=== PATIENT | female | born 1955 | race Asian ===

== ENCOUNTER 2018-10-11 05:22 | Observation (INO) | payer OTHER ==
[2018-10-11] MEDS ORDERED: LR 1,000 ML IV ONE (05:53)
[2018-10-11] MEDS ORDERED: LIDOCAINE 1% 2 ML INJ ID PRN (05:53)
[2018-10-11] MEDS ORDERED: PHENAZOPYRIDINE HCL 200 MG TAB PO ONE (06:00)
[2018-10-11] MEDS ORDERED: ceFAZolin 2 GM/DEXTROSE 100 ML IV ONE (06:00)
[2018-10-11] MEDS ORDERED: MIDAZOLAM 2 MG/2 ML VIAL IVP ONE (07:05)
--- NOTE | 2018-10-11 07:05 | PDANEPAE ---
ANE History of Present Illness incontinence and vaginal prolapse, here for sacrocolpopexy and hysterectomy ANE Past Medical History - Cardiovascular History Hx Hypertension: No Hx Arrhythmias: No Hx Chest Pain: No Hx Coronary Artery / Peripheral Vascular Disease: No Hx CHF / Valvular Disease: No Hx Palpitations: No - Pulmonary History Hx COPD: No Hx Asthma/Reactive Airway Disease: No Hx Recent Upper Respiratory Infection: No Hx Oxygen in Use at Home: No Hx Sleep Apnea: No Sleep Apnea Screening Result - Last Documented: Negative - Neurologic History Hx Cerebrovascular Accident: No Hx Seizures: No Hx Dementia: No - Endocrine History Hx Diabetes: No - Renal History Hx Renal Disorders: No - Liver History Hx Hepatic Disorders: No - Neurological & Psychiatric Hx Hx Neurological and Psychiatric Disorders: Yes Neurological / Psychiatric History Comment: right hand middle finger numb in morning - Cancer History Hx Cancer: No - Congenital Disorder History Hx Congenital Disorders: No - GI History Hx Gastrointestinal Disorders: No - Other Health History Other Health History: bruises easily. wisdom teeth removed - Chronic Pain History Chronic Pain: No - Surgical History Prior Surgeries: none ANE Review of Systems Review of Systems: - Exercise capacity METS (RN): 4 METS ANE Patient History - Allergies Allergies/Adverse Reactions: No Known Allergies Allergy (Verified 09/29/18 10:41) - Home Medications Home Medications: Acetaminophen [Tylenol 325mg (*)] 325 mg PO DAILY PRN 09/29/18 [Last Taken 10/04] Ascorbic Acid [Vitamin C 500 mg (*)] 500 mg PO DAILY 09/29/18 [Last Taken ] Atorvastatin Calcium [Lipitor 10 mg (*)] 10 mg PO DAILY 09/29/18 [Last Taken 19:00] Glucosamine Sulfate [Glucosamine Sulfate 500 MG (*)] 500 mg PO DAILY 09/29/18 [ Last Taken 10/04/18] Multivitamins [Multivitamin (*)] 1 each PO DAILY 09/29/18 [Last Taken 10/04/18] - NPO status NPO Since - Liquids (Date): 10/10/18 NPO Since - Liquids (Time): 20:00 NPO Since - Solids (Date): 10/10/18 NPO Since - Solids (Time): 20:00 - Smoking Hx Smoking Status: Never smoked - Family Anes Hx Family Hx Anesthesia Complications: none ANE Labs/Vital Signs - Vital Signs Blood Pressure: 155/79 Heart Rate: 65 Respiratory Rate: 16 O2 Sat (%): 93 Height: 160.02 cm Weight: 53.07 kg ANE Physical Exam - Airway Neck exam: FROM Mallampati Score: Class 1 Mouth exam: normal dental/mouth exam - Pulmonary Pulmonary: no respiratory distress, no rales or rhonchi - Cardiovascular Cardiovascular: regular rate and rhythym, no murmur, rub, or gallop - ASA Status ASA Status: II ANE Anesthesia Plan Anesthesia Plan: general endotracheal anesthesia Total IV Anesthesia: No
--- NOTE | 2018-10-11 07:05 | PDHPUP ---
History & Physical Update H&P update statement: This history and physical update is based on an assessment of the patient which was completed after admission or registration (within 24 hours), but prior to the surgery/procedure. H&P update: H&P reviewed & patient examined, no change in patient's condition since H&P completed
[2018-10-11] MEDS ORDERED: MIDAZOLAM 2 MG/2 ML VIAL ONE (07:06)
[2018-10-11] MEDS ORDERED: DEXAMETHASONE 4 MG/ML VIAL ONE (07:10)
[2018-10-11] MEDS ORDERED: fentaNYL 100 MCG/2 ML INJ ONE (07:10)
[2018-10-11] MEDS ORDERED: LIDOCAINE 2% 100 MG/5 ML SYR ONE (07:10)
[2018-10-11] MEDS ORDERED: PROPOFOL 200 MG/20 ML VIAL ONE ×2 (07:10→09:17)
[2018-10-11] MEDS ORDERED: ROCURONIUM 100 MG/10 ML VIAL ONE (07:10)
--- NOTE | 2018-10-11 07:12 | PDGENHP ---
History and Physical History and Physical: Assessment and Plan: 1. Uterine prolapse Dinora has symptomatic complete uterine prolapse with accompanying cystocele and rectocele. We discussed conservative and surgical options. She is not interested in a pessary. She would like surgical repair. We discussed that this would include a robotic hysterectomy with sacrocolpopexy with mesh and repair of rectocele. She will see Dr. Menendez preoperatively for exam. We also discussed the benefits of vaginal estrogen cream, which may be helpful if she is sexually active. 2. Cystocele, lateral 3. Rectocele Subjective: Patient ID: Dinora is a 63 y.o. female who presents to [facility] for uterine prolapse. HPI Dinora Loera presents for a preoperative visit. She is scheduled for a robotic assisted hysterectomy and sacrocolpopexy. The risks, benefits, and alternatives were presented and informed consent was obtained. 40 minutes of this 40 minute appointment was spent counceling, reviewing the procedure in detail, and discussing the preoperative and postoperative instructions. Below is a copy of our prior visit note. Dinora is a 63 year old para [address] PCP Dr. Arellano for uterine prolapse. She previously saw an OBGYN with [facility] in [place]. She was told she had uterine prolapse. She is here to discuss options for this. Dinora noticed a vaginal bulge 1-2 years ago, this has progressed over time. It now is falling out every day, both when she stands and walks around. IT is becoming uncomfortable. She is able to reduce it, but often has to push it back in while walking around. She notices urinary hesitancy, but once her stream starts, she feels as if she empties completely. She denies urinary leakage. She has chronic constipation but denies difficulty emptying her bowl. She is not sexually active. She deneis vaginal bleeding. She does have some low back discomfort. CURRENT MEDICATIONS: Current Outpatient Medications Medication Sig aspirin 81 mg EC tablet Take 81 mg by mouth daily. atorvaSTATin (LIPITOR) 10 mg tablet Take 1 tablet by mouth daily. multivitamin (HEXAVITAMIN) per tablet Take 1 tablet by mouth daily. No current facility-administered medications for this visit. ALLERGIES: No known drug allergies I have reviewed, verified and agree with the past medical, surgical and history as documented by the RN today. Review of Systems Objective: Vital Signs: Visit Vitals BP 128/78 Pulse 76 Temp 36.5 C (97.7 F) (Temporal) Resp 14 Ht 1.638 m (5' 4.5") Wt 52.8 kg (116 lb 6.4 oz) SpO2 93% BMI 19.67 kg/m Physical Exam Constitutional: She is oriented to person, place, and time. She appears well- developed and well-nourished. Abdominal: Soft. There is no tenderness. Musculoskeletal: Normal range of motion. Neurological: She is alert and oriented to person, place, and time. Skin: Skin is warm and dry. Psychiatric: She has a normal mood and affect. Her behavior is normal. Pelvic: Normal external genitalia. Moderately gaping introitus. Vaginal tissue moderately atrophic. Complete uterovaginal prolapse noted with valsalva. While supporting the uterus, grade 3 cystocele evident with valsalva. Grade 2 rectoceel with valsalva. No obvious urinary leakage. No vaginal bleeding or discharge. No cervical lesion or discharge. Uterus midline, no tenderness. No adnexal tenderness or masses. Procedures DATA: I have reviewed patient's outside medical records. Summary findings include prolapse. TIME/COUNSELING: I personally spent a total of 45 minutes. Of that 40 minutes was counseling/ coordination of patient's care. See my note above for details. Victorino Menendez MD
[2018-10-11] MEDS ORDERED: BUPIVACAINE/EPI 0.25% 30 ML SDV ONE (07:22)
[2018-10-11] MEDS ORDERED: HYDROmorphONE/DILAUDID 2 MG/ML INJ ONE (08:43)
[2018-10-11] MEDS ORDERED: SUGAMMADEX SODIUM 200 MG/2 ML VIAL IVP ONE (08:43)
[2018-10-11] MEDS ORDERED: ONDANSETRON 4 MG/2 ML VIAL ONE (08:43)
[2018-10-11] MEDS ORDERED: fentaNYL 100 MCG/2 ML INJ IVP PRN (09:07)
[2018-10-11] MEDS ORDERED: DIAZEPAM 10 MG/2 ML SYR IVP PRN (09:07)
[2018-10-11] MEDS ORDERED: NALOXONE HCL 0.4 MG/ML INJ IVP PRN (09:07)
[2018-10-11] MEDS ORDERED: PHENYLEPHRINE HCL 100 MCG/ML SYR IVP PRN (09:07)
[2018-10-11] MEDS ORDERED: ACETAMINOPHEN 500 MG TAB PO PRN (09:07)
[2018-10-11] MEDS ORDERED: LR 500 ML IV PRN (09:07)
[2018-10-11] MEDS ORDERED: HYDROmorphONE/DILAUDID 1 MG/ML INJ IVP PRN (09:07)
[2018-10-11] MEDS ORDERED: MEPERIDINE 25 MG/0.5 ML AMP IVP PRN (09:07)
[2018-10-11] MEDS ORDERED: PROMETHAZINE HCL 25 MG/ML INJ IVP PRN (09:07)
[2018-10-11] MEDS ORDERED: oxyCODONE IR 5 MG TAB PO PRN (09:07)
[2018-10-11] MEDS ORDERED: METOCLOPRAMIDE 10 MG/2 ML VIAL IVP PRN (09:07)
[2018-10-11] MEDS ORDERED: ONDANSETRON DISINTEGRATING 4 MG TAB PO PRN (09:47)
[2018-10-11] MEDS ORDERED: ONDANSETRON 4 MG/2 ML VIAL IVP PRN (09:47)
[2018-10-11] MEDS ORDERED: HYDROCODONE/APAP 5/325 TAB PO PRN (09:47)
--- NOTE | 2018-10-11 09:47 | POSTOPPROG ---
Post Op Note Date of Operation: 10/11/18 Surgeon: Victorino Menendez Retail Buyer: Mechelle Aparicio Anesthesia: GET(General Endotracheal) Pre-op Diagnosis: Uterovaginal prolapse Post-op Diagnosis: Same Procedure: Robotic hyst/BSO, sacrocolpopexy, cysto Findings: No ureteral injury seen Inf/Abcess present in the surg proc area at time of surgery?: No EBL: Minimal Complications: None
--- NOTE | 2018-10-11 09:48 | POSTANESTH ---
Post Anesthetic Evaluation Cardiovascular Status: Normal, Stable Respiratory Status: Normal, Stable Level of Consciousness/Mental Status: Can Participate in Eval, Moderately Sleepy Pain Control: Adequate, Prn Tx Ordered Nausea/Vomiting Control: Adequate, Prn Tx Ordered Complications Possibly Related to Anesthesia: None Noted
[2018-10-11] MEDS ORDERED: LR 1,000 ML IV SCH (10:00)
--- NOTE | 2018-10-11 13:23 | GOP ---
[f rep st] OPERATIVE REPORT DATE OF OPERATION: 10/11/2018 SURGEON: Victorino Menendez MD LEDGE MAN: Mechelle Aparicio CFA ANESTHESIA: General. PREOPERATIVE DIAGNOSIS: 1. Complete uterine prolapse. 2. Cystocele. 3. Rectocele. POSTOPERATIVE DIAGNOSIS: 1. Complete uterine prolapse. 2. Cystocele. 3. Rectocele. 4. Endometriosis. PROCEDURE PERFORMED: 1. Robotic-assisted laparoscopic hysterectomy, bilateral salpingo-oophorectomy. 2. Sacrocolpopexy with mesh. 3. Repair of cystocele and rectocele. 4. Excision of endometriosis. 5. Cystoscopy. FINDINGS: SPECIMENS: Uterus, bilateral tubes, and ovaries. ESTIMATED BLOOD LOSS: Scant. DESCRIPTION OF PROCEDURE: The patient was taken to the operating room, where she was identified. Ge neral anesthesia was administered and found to be adequate. She was placed in the lithotomy position and prepared and draped in normal sterile fashion. A San catheter was placed in her bladder. An 8 mm infraumbilical incision was made with a scalpel. The Veress needle with the CO2 gas flowing was advanced into the peritoneal cavity. The abdomen was then insufflated with carbon dioxide gas. The 8 mm trocar followed by the laparoscope were then inserted. Two lateral ports were placed on eit her side under direct visualization. The upper abdomen was unremarkable, with the exception of adhes ions to the right of the midline, extended from below the umbilicus up to the falciform ligament. Th joe were taken down sharply with the standard laparoscopic scissors. She then was placed in [place] n[place] position and the da Elaina robot docked on the left side. The instruments were advanced into th e abdominal cavity under direct visualization. The uterus, tubes, and ovaries were relatively unrema rkable. She did have endometriosis in the posterior cul-de-sac, more so on the left with bowel adher ent. This required excision to restore normal anatomy to access the appropriate spaces. The lesions had been excised. The left round ligament was divided. The anterior lip of the broad ligament was incised to the bifur cation of the left common iliac vessels. A window was created in the posterior leaf anterior to the left ureter. The infundibulopelvic vessels were then cauterized and transected. The bladder was dis sected off the lower uterine segment and cervix. The left uterine vasculature was then cauterized an d transected. The exact same procedure was performed on the patient's right side. The uterus was th en bivalved to aid in removal through the umbilicus. The uterus and upper three-fourths of the cervi x were amputated from the lower fourth of the cervix with the hot marky. The specimen was placed in the right upper quadrant for later removal. The Colpo-Probe was placed in the vagina. The bladder was further dissected off the anterior vaginal wall down to the level of the bladder neck. The rectu m was dissected off the posterior vaginal wall down to the level of the perineal body. Measurements were then obtained and the mesh trimmed to size. The sigmoid colon was then retracted laterally. Th e peritoneum over the sacral promontory was incised and the fat pad gently dissected off the anterior longitudinal ligament. The mesh was brought into the abdominal cavity. Three sutures of 4-0 Amorita-T ex were used to attach the distal posterior mesh to the perineal body. Two additional rows of Amorita-T ex sutures were placed posteriorly. Three rows were placed anteriorly to suture the anterior mesh do wn to the level of the bladder neck and laterally to the paravaginal tissue. The Colpo-Probe was rem dick. The sacral arm of the mesh was placed to the promontory and then tension adjusted to resolve t he cystocele and rectocele without undue tension on the vagina. Two sutures of 2-0 Amorita-Marlon were use d to attach the sacral arm of the mesh to the anterior longitudinal ligament at the level of the uppe r 1st sacral vertebral body. The peritoneum was then closed over the entire mesh. The robot was the n undocked. The specimen removed through the umbilicus. The fascia was closed with 0 Vicryl, skin w ith 4-0 Monocryl. Cystoscopy was then performed. Both ureters had vigorous jets of urine. There was no evidence of bl adder nor urethral injury seen. There was no mesh nor suture within the bladder nor urethra. No obv ious pathology was seen within the bladder. Vaginal packing was then placed, anesthesia was reversed , and the patient taken to PACU awake, in stable condition. COMPLICATIONS: None. DISPOSITION: Patient stable to PACU. /[id number]/MODL
[2018-10-11] MEDS: KETOROLAC 15 MG/1 ML SDV IVP SCH ×2 (17:00→22:56)
[2018-10-12] MEDS: KETOROLAC 15 MG/1 ML SDV IVP SCH (05:17)
[2018-10-12 08:27] VITALS: BP 121/74
[2018-10-12] MEDS ORDERED: IBUPROFEN 600 MG TAB PO ONE (08:45)
--- NOTE | 2018-10-12 09:05 | GDS ---
[f rep st] DISCHARGE SUMMARY DISCHARGE DIAGNOSIS: Uterovaginal prolapse. PROCEDURES: 1. Robotic hysterectomy bilateral salpingo-oophorectomy. 2. Sacral colpopexy. 3. Repair of cystocele and rectocele. 4. Cystoscopy. HISTORY: The patient is a 63-year-old female with symptomatic uterovaginal prolapse. She was taken to the operating room on 10/11/2018 where she underwent the above-mentioned procedures without compli cations. Her postoperative course was uneventful. The morning after surgery, she was ambulating and voiding, tolerating a general diet. She was discharged home on postoperative day #1 in good condition. Medic ations included Trent and ibuprofen for pain. She was to follow up in the office 2 weeks after disch gaele. /[id number]/MODL
== END 2018-10-12 11:00 | disposition home or self-care (01) ==
LOC: F3E 05:22 → FOB 11:15
PROVIDERS: ADMIT Obstetrics & Gynecology; ATTEND Obstetrics & Gynecology
PROC: 0UT74ZZ Resection of Bilateral Fallopian Tubes, Percutaneous Endoscopic Approach (ICD-10-PCS; principal; 2018-10-11 07:15)
PROC: 0TJ98ZZ Inspection of Ureter, Via Natural or Artificial Opening Endoscopic (ICD-10-PCS; principal; 2018-10-11 07:15)
PROC: 0UT94ZZ Resection of Uterus, Percutaneous Endoscopic Approach (ICD-10-PCS; principal; 2018-10-11 07:15)
PROC: 0TQB4ZZ Repair Bladder, Percutaneous Endoscopic Approach (ICD-10-PCS; principal; 2018-10-11 07:15)
PROC: 0UQG4ZZ Repair Vagina, Percutaneous Endoscopic Approach (ICD-10-PCS; principal; 2018-10-11 07:15)
PROC: 0UT24ZZ Resection of Bilateral Ovaries, Percutaneous Endoscopic Approach (ICD-10-PCS; principal; 2018-10-11 07:15)
PROC: 8E0W4CZ Robotic Assisted Procedure of Trunk Region, Percutaneous Endoscopic Approach (ICD-10-PCS; principal; 2018-10-11 07:15)
DX: N81.3 Complete uterovaginal prolapse (principal); N80.8 Other endometriosis
CPT/HCPCS: 57250; 57423; 58542; C1763; G0378; J0690; J1100; J1170; J1885; J2001; J2250; J2270; J2405; J2704; J3010